=== PATIENT | female | born 1950 | race Caucasian/White ===

== ENCOUNTER 2020-09-11 14:36 | Outpatient (REF) | payer MEDICARE, BC, SELFPAY ==
[2020-09-11 21:47] LABS: ALT 23 U/L (14-59); AST 27 U/L (15-37); Albumin 4.2 g/dL (3.4-5.0); Alkaline Phosphatase 84 U/L (46-116); Anion Gap 9.8 mmol/L (3-11); BUN 18 mg/dL (7-18); Bilirubin, Total 0.5 mg/dL (0.2-1.0); CO2 26.2 mmol/L (21.0-32.0); CREATININE 0.7 mg/dL (0.55-1.02); Calcium 9.1 mg/dL (8.5-10.1); Calculated LDL 86 mg/dL (<100); Chloride 102 mmol/L (98-107); Cholesterol 182 mg/dL (<200); Glucose 106 mg/dL (74-106); HDL Cholesterol 83 mg/dL (40-60); Potassium 4.4 mmol/L (3.5-5.1); Sodium 138 mmol/L (136-145); Total Protein 7.1 g/dL (6.4-8.2); Triglyceride 67 mg/dL (<150)
[2020-09-13 09:31] LABS: Hepatitis C Ab w Rflx HCV PCR Negative (Negative)
[2020-09-13 09:39] LABS: HIV-1/2 Ag & Ab Screen Negative (Negative)
== END 2020-09-11 14:37 | disposition home or self-care (01) ==
LOC: NCHCN 14:36
PROVIDERS: PCP Nurse Practitioner Family; Visit Provider Nurse Practitioner Family
DX: Z00.00 Encounter for general adult medical examination without abnormal findings (principal); Z11.59 Encounter for screening for other viral diseases; Z11.4 Encounter for screening for human immunodeficiency virus [HIV]; Z13.6 Encounter for screening for cardiovascular disorders; Z11.3 Encounter for screening for infections with a predominantly sexual mode of transmission
CPT/HCPCS: 80053; 80061; 86803; 87389

== ENCOUNTER 2021-02-04 15:59 | Outpatient (REF) | payer MEDICARE, BC, SELFPAY ==
--- NOTE | 2021-02-04 11:25 | PAPFT_PTH ---
PATIENT: Netta Hernandez LOC: [facility] U#:[id number] AGE/SX: 70/F ROOM: RE02/04/[address]: Sulema Briceño : 1950 BED: DIS: 02/04/2021 SPEC #: [id number] RECD: 02/05/21 12:55 STATUS: HAIDER RENeda #: [id number] DARRELL: 02/04/21 11:[address]: Sulema Briceño DEPT: [facility] Cytology RECD BY: Catalina Dawson Tissues: 1 - CX/ENDOCX FOR PAP SMEARS Procedures: PAP THIN PREP/UVM Screening HPV DNA PROBE Comments: [id number]
== END 2021-02-04 16:00 | disposition home or self-care (01) ==
LOC: NCHCN 15:59
PROVIDERS: PCP Nurse Practitioner Family; Visit Provider Nurse Practitioner Family
DX: Z12.4 Encounter for screening for malignant neoplasm of cervix (principal); Z11.51 Encounter for screening for human papillomavirus (HPV)
CPT/HCPCS: 88142; 87624

== ENCOUNTER 2022-02-11 16:39 | Outpatient (REF) | payer MEDICARE, BC, SELFPAY ==
[2022-02-11 20:48] LABS: ALT 22 U/L (14-59); AST 27 U/L (15-37); Albumin 3.9 g/dL (3.4-5.0); Alkaline Phosphatase 86 U/L (46-116); Anion Gap 7.5 mmol/L (3-11); BUN 21 mg/dL (7-18); Bilirubin, Total 0.3 mg/dL (0.2-1.0); CO2 28.5 mmol/L (21.0-32.0); CREATININE 0.8 mg/dL (0.55-1.02); Calcium 9.1 mg/dL (8.5-10.1); Chloride 102 mmol/L (98-107); Estimated GFR 79.71 (mL/min/1.73m2); Glucose 99 mg/dL (74-106); Potassium 3.6 mmol/L (3.5-5.1); Sodium 138 mmol/L (136-145); Total Protein 7.1 g/dL (6.4-8.2)
[2022-02-13 05:54] LABS: Vitamin D 25 Total 59.3 ng/mL (30-100)
== END 2022-02-11 16:40 | disposition home or self-care (01) ==
LOC: NCHCN 16:39
PROVIDERS: PCP Nurse Practitioner Family; Visit Provider Nurse Practitioner Family
DX: M81.0 Age-related osteoporosis without current pathological fracture (principal); Z00.00 Encounter for general adult medical examination without abnormal findings
CPT/HCPCS: 80053; 82306

== ENCOUNTER 2024-02-18 16:08 | Outpatient (REF) | payer MEDICARE, BC, SELFPAY ==
--- OUTSIDE RECORDS SUMMARY | 2024-02-18 16:10 | XMS_ITS | Encounter Summary ---
Author Organization [facility] Address [address] [place] [address] Care Team Providers Care Data Management Consultant Name Role Phone KeyannaSulema ochoa Leelee DIANA Primary Care Provider [phone] Encounter Details Date Type Department Care Team (Late st Contact Info) Description 09/12/[address] [facility] Pathology & Laboratory Medicine - [address] [address] Outr Resulting Lab, Provider Social History Tobacco Use Types Packs/Day Years Used Date Smoking Tobacco: Never Assessed Interpersonal Safety Answer Date Record ed Physically Hurt Never 08/20/2020 Verbally Threaten Not on file 08/20/2020 Sex and Gender Information Value Date Recorded Sex Assigned at Not on file Gender Identity Not on file Sexual Orientation Not on file documented as of this encounter Plan of Treatment Not on file documented as of this encounter Procedures Procedure Name Priority Date/Time Associated Diagnosis Comments HEPATITIS C AB W REFLEX TO HCV RNA BY PCR Routine 09/11/2020 11:15 EDT documented in this encounter Results * HEPATITIS C AB W REFLEX TO HCV RNA BY PCR (09/11/2020 11:15 EDT) Hep C Antibody Negative Negative 09/13/2020 9:26 EDT [facility] Blood VENOUS BLOOD / Unknown 09/11/2020 11:15 EDT 09/12/2020 15:54 EDT Provider Outr Resulting Lab CHEMISTRY & BLOOD GAS ORDERABLES [facility] [address] [place] [address] documented in this encounter Visit Diagnoses Not on filedocumented in this encounter Care Teams Data Management Consultant Relationship Specialty Start Date End Date Sulema Briceño APRN 4 [facility] [place] [address] PCP - General 08/20/20 documented as of this encounter
--- OUTSIDE RECORDS SUMMARY | 2024-02-18 16:10 | XMS_ITS | Encounter Summary ---
Author Organization [facility] Address [address] [place] [address] Care Team Providers Care Hole Puncher Strap Name Role Phone KeyannaSulema ochoa Leelee DIANA Primary Care Provider [phone] Reason for Visit * Reason Comments Breast Problem Telemedicine Phone Call Encounter Details Date Type Department Care Team (Late st Contact Info) Description 08/30/2020 12:[address] [facility] OBGYN [address], [place] [id number] Thao Najera, VOLLEYBALL COMMENTATOR [address] [facility] [place] [address] Contusion of right breast, initial encounter (Primary Dx) Social History Tobacco Use Types Packs/Day Years Used Date Smoking Tobacco: Never Assessed Interpersonal Safety Answer Date Record ed Physically Hurt Never 08/20/2020 Verbally Threaten Not on file 08/20/2020 Sex and Gender Information Value Date Recorded Sex Assigned at Not on file Gender Identity Not on file Sexual Orientation Not on file documented as of this encounter Progress Notes * Thao Najera APRN - 08/30/2020 1240 EDT [facility] Telephone Visit Verbal consent: The concept of ???Telemedicine?? has been described to the patient.? Patient has been informed of the anticipated benefits and possible risks.? Patient understands the information provided regardingtelemedicine, has had the opportunity to ask questions about this information, and all questions have been answered to patient???s satisfaction. Patient consents for the use of telemedicine in his/her medical care and authorizes the transmission of any relevant medical information to providers and their staff involved in patient???s medical or mental health care. Subjective: Chief Complaint(s): Breast Problem and Telemedicine Phone Call HPI: Telemed phone call due to pandemic. A couple of weeks ago noticed a bruise on her right breast-was there for about a week. Turned yellow and went away. Thinks it happened from sleeping in a differentposition. No nipple discharge, no pain. Did not notice any other changes. Has not had a mammogram in a long time. I have reviewed current problem list and current medications. Taking B complex, D-Mannose, Adrenal support supplement, no other medications Scheduled for first Covid vaccine in 2 weeks ROS: Healthy diet-normal daily BMs Denies urinary symptoms-at some point had blood in her urine and started taking D-Mannose and cranberry juice and it resolved Denies vaginal bleeding Objective: Examination: Home Vitals: There were no vitals taken for this visit. Pertinent exam findings patient can observe: see HPI Data reviewed with patient: No data Assessment & Plan: Breast contusion that resolved spontaneously Overdue for AE/PAP/Mammogram-An plans to schedule a visit in 12/2020 Patient initiated phone contact with the office Yes, Is an established patient (parent, guardian) No, E/M provided within previous 7 days for same Assessment No, Anticipate E/M service within 24hrs or next available urgent appointment No, Time spent in medical discussion 11-20. 20 minutes includingchart review and charting Thao Najera APRN documented in this encounter Plan of Treatment Not on file documented as of this encounter Visit Diagnoses Diagnosis Contusion of right breast, initial encounter- Primary documented in this encounter Care Teams Hole Puncher Strap Relationship Specialty Start Date End Date Sulema Briceño APRN [address] [place] [address] PCP - General 08/20/20 documented as of this encounter
--- OUTSIDE RECORDS SUMMARY | 2024-02-18 16:10 | XMS_ITS | Clinical Summary ---
Author Organization [facility] Address [address] [place] [address] Care Team Providers Care Power Originator Name Role Phone Sulema Briceño APRN Primary Care Provider [phone] Allergies No known active allergies Medications Medication Sig Dispensed Refills Start Date End Date Status UNABLE TO FIND Med Name: CBD supplement Active Multivitamins with Minerals tablet tablet Take 1 Tab by mouth daily. Active Social History Tobacco Use Types Packs/Day Years Used Date Smoking Tobacco: Never Assessed Interpersonal Safety Answer Date Record ed Physically Hurt Never 08/20/2020 Verbally Threaten Not on file 08/20/2020 Sex and Gender Information Value Date Recorded Sex Assigned at Not on file Gender Identity Not on file Sexual Orientation Not on file Obstetrics History Para Term AB IAB SAB Ectopic Multiple Livin g Live Births 0 Last Filed Vital Signs Vital Sign Reading Time Taken Comments Blood Pressure 144/84 08/20/2020 1041 EDT Pulse 89 08/20/2020 1041 EDT Temperature 36.6 ??C (97.8 ??F) 08/20/2020 1041 EDT s canner Respiratory Rate 18 08/20/2020 1041 EDT Oxygen Saturation 100% 08/20/2020 1041 EDT Inhaled Oxygen Concentration - - Weight - - Height - - Body Mass Index - - Plan of Treatment Health Maintenance Due Date Last Done Comments RSV Immunization ( o r 60+ Years) (1 - 1-dose 60+ series) 2012 Fall Risk Screening 2017 COVID-19 Vaccine ( season) 2024 Hepatitis C Screen Completed 09/11/2020 Procedures Procedure Name Priority Date/Time Associated Diagnosis Comments HEPATITIS C AB W REFLEX TO HCV RNA BY PCR Routine 09/11/2020 11:15 EDT from Last 3 Months or Most Recently Relevant to Health Maintenance Results * HEPATITIS C AB W REFLEX TO HCV RNA BY PCR (09/11/2020 11:15 EDT) Hep C Antibody Negative Negative 09/13/2020 9:26 EDT [facility] Blood VENOUS BLOOD / Unknown 09/11/2020 11:15 EDT 09/12/2020 15:54 EDT Provider Outr Resulting Lab CHEMISTRY & BLOOD GAS ORDERABLES [facility] [address] [place] [address] from Last 3 Months or Most Recently Relevant to Health Maintenance Care Teams Power Originator Relationship Specialty Start Date End Date Sulema Briceño APRN 4 [facility] [place] [address] PCP - General 08/20/20
--- OUTSIDE RECORDS SUMMARY | 2024-02-18 16:10 | XMS_ITS | Referral Summary ---
Author Organization [facility] Address [address] [place] [address] Care Team Providers Care Graduate Teaching Assistant Name Role Phone Sulema Briceño APRN Primary Care Provider [phone] Allergies No known active allergies Medications Medication [...] on file Sexual Orientation Not on file Last Filed Vital Signs Vital Sign Reading Time Taken Comments Blood Pressure 144/84 08/20/2020 1041 EDT Pulse 89 08/20/2020 1041 EDT Temperature 36.6 ??C (97.8 ??F) 08/20/2020 1041 EDT s canner Respiratory Rate 18 08/20/2020 1041 EDT Oxygen Saturation 100% 08/20/2020 1041 EDT Inhaled Oxygen Concentration - - Weight - - Height - - Body Mass Index - - Plan of Treatment Not on file Procedures Procedure Name Priority Date/Time Associated Diagnosis Comments HEPATITIS C AB W REFLEX TO HCV RNA BY PCR Routine 09/11/2020 11:15 EDT from Last 3 Months or Most Recently Relevant to Health Maintenance Results * HEPATITIS C AB W REFLEX TO HCV RNA BY PCR (09/11/2020 11:15 EDT) Hep C Antibody Negative Negative 09/13/2020 9:26 EDT [facility] Blood VENOUS BLOOD / Unknown 09/11/2020 11:15 EDT 09/12/2020 15:54 EDT Provider Outr Resulting Lab CHEMISTRY & BLOOD GAS ORDERABLES [facility] [address] [place] [address] from Last 3 Months or Most Recently Relevant to Health Maintenance Care Teams Graduate Teaching Assistant Relationship Specialty Start Date End Date Sulema Briceño APRN 4 [facility] [place] [place] [address] PCP - General 08/20/20
--- OUTSIDE RECORDS SUMMARY | 2024-02-18 16:10 | XMS_ITS | Encounter Summary ---
Author Organization [facility] Address [address] [place] [address] Care Team Providers Care Sales Associate Fishing Name Role Phone Sulema Briceño APRN Primary Care Provider [phone] Reason for Referral * Radiology Services (Routine/Next Available) - Authorization Not Required Specialty Diagnoses / Procedures Referred By Owne yadav Referred To Contact Diagnoses Encounter for screening mammogram for malignant neoplasm of breast Procedures MA BREAST SCREENING FLO BILATERAL Sulema Briceño APRN [address] [place] [address] [facility] Referral ID Status Reason Start Date Expiration Date Visits Requested Visits Authorized [id number] Authorization Not Required 11/28/2021 1 1 Reason for Visit * Radiology Services (Routine/Next Available) - Authorization Not Required Specialty Diagnoses / Procedures Referred By Owen yadav Referred To Contact Diagnoses Encounter for screening mammogram for malignant neoplasm of breast Procedures MA BREAST SCREENING FLO BILATERAL Sulema Briceño APRN [address] [place] [address] [facility] Referral ID Status Reason Start Date Expiration Date Visits Requested Visits Authorized [id number] Authorization Not Required 11/28/2021 1 1 Encounter Details Date Type Department Care Team (Latest Contact Info) Description 01/08/2022 13:31 EDT - 01/08/2022 23:59 EDT Hospital Encounter [facility] [address] [place] [address] Encounter for screening mammogram for malignant neoplasm of breast Discharge Disposition: Home or Self Care Social History Tobacco Use Types Packs/Day Years Used Date Smoking Tobacco: Never Assessed Interpersonal Safety Answer Date Record ed Physically Hurt Never 08/20/2020 Verbally Threaten Not on file 08/20/2020 Sex and Gender Information Value Date Recorded Sex Assigned at Not on file Gender Identity Not on file Sexual Orientation Not on file documented as of this encounter Medications at Time of Discharge Medication Sig Dispensed Refills Start Date End Date Multivitamins with Minerals tablet tablet Take 1 Tab by mouth daily. UNABLE TO FIND Med Name: CBD supplement documented as of this encounter Discharge Disposition Disposition Code Departure Means Destination Home or Self Care documented in this encounter Plan of Treatment Not on file documented as of this encounter Procedures Procedure Name Priority Date/Time Associated Diagnosis Comments MA BREAST SCREENING FLO BILATERAL Routine 01/08/2022 14:05 EDT Encounter for screening mammogram for malignant neoplasm of breast documented in this encounter Results * MA BREAST SCREENING FLO BILATERAL (01/08/2022 14:05 EDT) Anatomical Region Laterality Modality Breast Bilateral Mammography 01/10/2022 14:5 9 EDT Impressions 01/10/2022 14:59 EDT Negative, no evidence of malignancy. RECOMMENDATION: Routine screening mammography is recommended. OVERALL ASSESSMENT: BI-RADS 1: Negative These results will be communicated to your patient via a lay letter from Radiology. If any additional imaging is needed we will contact your patient directly. Narrative 01/10/2022 14:59 EDT MA BREAST SCREENING FLO BILATERAL ??01/08/2022 1:50 PM History: SCREENING Comparison: ??Comparison has been made to previous images. Technique: Routine 3D tomosynthesis with synthesized 2D views with CAD Bilateral Breast Composition: The breast tissue is heterogenously dense, which may obscure small masses. Bilateral Breast Findings: ??No significant masses, calcifications or other abnormalities are seen. Procedure Note Mian Almendarez MD - 01/10/2022 MA BREAST SCREENING FLO BILATERAL 01/08/2022 1:50 PM History: SCREENING Comparison: Comparison has been made to previous images. Technique: Routine 3D tomosynthesis with synthesized 2D views with CAD Bilateral Breast Composition: The breast tissue is heterogenously dense,which may obscure small masses. Bilateral Breast Findings: No significant masses, calcifications or otherabnormalities are seen. IMPRESSION Negative, no evidence of malignancy. RECOMMENDATION: Routine screening mammography is recommended. OVERALL ASSESSMENT: BI-RADS 1: Negative These results will be communicated to your patient via a lay letter fromRadiology. If any additional imaging is needed we will contact yourpatient directly. Sulema Briceño APRN [facility]AP[facility] [place] documented in this encounter Visit Diagnoses Diagnosis Encounter for screening mammogram for malignant neoplasm of breast Other screening mammogram documented in this encounter Care Teams Sales Associate Fishing Relationship Specialty Start Date End Date Sulema Briceño APRN [address] [place] [address] PCP - General 08/20/20 documented as of this encounter
--- OUTSIDE RECORDS SUMMARY | 2024-02-18 16:10 | XMS_ITS | Encounter Summary ---
Author Organization [facility] Address [address] [place] [address] Care Team Providers Care Greenhouse Assistant Name Role Phone Sulema Briceño APRN Primary Care Provider [phone] Encounter Details Date Type Department Care Team (Late st Contact Info) Description 02/06/2021 Lab Requisition [facility] Pathology & Laboratory Medicine - [address] [address] Sulema Briceño APRN [address] [place] [address] Encounter for other general examination Social History Tobacco Use Types Packs/Day Years [...] Procedure Name Priority Date/Time Associated Diagnosis Comments PAP TEST Today 02/04/2021 11:25 EDT Encounter for other general examination HPV DNA DETECTION WITH GENOTYPING, PCR Today 02/04/2021 11:25 EDT Encounter for other general examination documented in this encounter Results * HUMAN PAPILLOMAVIRUS (HPV) DETECTION-HIGH RISK TYPES (02/04/2021 11:25 EDT) HPV other High Risk types, PCR Negative Negative 02/21/2021 7:35 [facility] Comment:No E6 or E7 mRNA is detected from HPV types 16,18,31,33,35,39,45,51,52,56,58,59,66, and 68 by certified substance abuse counselor mediated amplification. Papanicolaou smear specimen (specimen) CERVIX UTERI STRUCTURE / Unknown 02/04/2021 11:25 EDT 02/19/2021 13:39 EDT Sulema Mckoy Keyanna DIANA MICROBIOLOGY - GENER AL ORDERABLES [facility] [address] [place] [address] * PAP TEST (02/04/2021 11:25 EDT) Specimens A. Cervix and/or Endocervix , ThinPrep Imaging System with Manual Evaluation 02/21/2021 7:35 [facility] Specimen Adequacy Satisfactory for Evaluation - assessment of transformation zone component not applicable ( e.g. atrophy, vaginal sample, hysterectomy) Scant squamous epithelial component, contamination present, possibly lubricant 02/21/2021 7:35 [facility] General Categorization Negative for intraepithelial lesion or malignancy 02/21/2021 7:35 [facility] Attestation . 02/21/2021 7:35 [facility] at 0735 Clinical History See below 02/22/20 7:35 [facility] HPV The result for the Human Papillomavirus (HPV) Detection-High Risk Types is Negative. No E6 or E7 mRNA is detected from HPV types 16,18,31,33,35,39 ,45,51,52,56,58,5 9,66, and 68 by certified substance abuse counselor mediated amplification.Purnima ting was performed on specimen [id number] and was resulted on 02/21/2021 0734 EDT by [place], LAB INSTRUMENT RESULTS IN 02/21/2021 7:35 T [facility] Performing Lab [facility] 02/21/2021 7:35 EDT [facility] Scanned Images 02/21/2021 7:35 EDT [facility] Papanicolaou smear specimen (specimen) CERVIX UTERI STRUCTURE / Unknown 02/04/2021 11:25 EDT 02/06/2021 14:44 EDT Sulema Briceño APRN PATHOLOGY ORDERABLES [facility] [address] [place] [address] documented in this encounter Visit Diagnoses Diagnosis Encounter for other general examination documented in this encounter Care Teams Greenhouse Assistant Relationship Specialty Start Date End Date Sulema Briceño APRN [address] [place] [address] PCP - General 08/20/20 documented as of this encounter
--- OUTSIDE RECORDS SUMMARY | 2024-02-18 16:10 | XMS_ITS | Encounter Summary ---
Author Organization [facility] Address [address] [place] [address] Care Team Providers Care Meteorological Observer Name Role Phone KeyannaSulema ochoa Leelee DIANA Primary Care Provider [phone] Encounter Details Date Type Department Care Team (Late st Contact Info) Description 09/12/2020 Lab Requisition [facility] Pathology & Laboratory Medicine - [address] [address] Outr Resulting Lab, Provider Social History Tobacco [...] Procedure Name Priority Date/Time Associated Diagnosis Comments HIV 1/2 ANTIGEN AND ANTIBODY, 4TH GENERATION Routine 09/11/2020 11:15 EDT documented in this encounter Results * HIV 1/2 ANTIGEN AND ANTIBODY, 4TH GENERATION (09/11/2020 11:15 EDT) HIV 1 and 2 Antibody/p24 Antigen, 4th Generation Negative Negative 09/13/2020 9:35 EDT [facility] Comment: If acute HIV-1 infection is suspected in a high risk ??patient, submit plasma specimen for HIV-1 RNA quantitation test. Fourth Generation assay performed on the Siemens [employer]. Blood VENOUS BLOOD / Unknown 09/11/2020 11:15 EDT 09/12/2020 15:54 EDT Provider Outr Resulting Lab IMMUNOLOGY A ND SEROLOGY ORDERABLES [facility] [address] [place] [address] documented in this encounter Visit Diagnoses Not on filedocumented in this encounter Care Teams Meteorological Observer Relationship Specialty Start Date End Date Sulema Briceño APRN [address] [place] [address] PCP - General 08/20/20 documented as of this encounter
--- OUTSIDE RECORDS SUMMARY | 2024-02-18 16:10 | XMS_ITS | Encounter Summary ---
Author Organization [facility] Address [address] [place] [address] Care Team Providers Care Meat Carrier Name Role Phone Sulema Briceño APRN Primary Care Provider [phone] Reason for Referral * Radiology Services (Routine/Next Available) - New Request Specialty Diagnoses / Procedures Referred By Contac t Referred To Contact Diagnoses Asymptomatic menopausal state Encounter for screening for osteoporosis Procedures XR DEXA BONE DENSITY Sulema Briceño APRN [address] [place] [address] [facility] Referral ID Status Reason Start Date Expiration Date V isits Requested Visits Authorized [id number] New Request 11/26/2021 1 1 Reason for Visit * Radiology Services (Routine/Next Available) - New Request Specialty Diagnoses / Procedures Referred By Contac t Referred To Contact Diagnoses Asymptomatic menopausal state Encounter for screening for osteoporosis Procedures XR DEXA BONE DENSITY Sulema Briceño APRN [address] [place] [address] [facility] Referral ID Status Reason Start Date Expiration Date V isits Requested Visits Authorized [id number] New Request 11/26/2021 1 1 Encounter Details Date Type Department Care Team (Latest Contact Info) Description 12/14/2021 10:15 EDT - 12/14/2021 23:59 EDT Hospital Encounter [facility] Xray [address] [place] [address] Asymptomatic menopausal state; Encounter for screening for osteoporosis Discharge Disposition: Home or Self Care Social [...] Procedure Name Priority Date/Time Associated Diagnosis Comments DXA BONE DENSITY Routine 12/14/2021 10:3 9 EDT Asymptomatic menopausal state Encounter for screening for osteoporosis documented in this encounter Results * XR DEXA BONE DENSITY (12/14/2021 10:39 EDT) Anatomical Region Laterality Modality DEXA Narrative 12/16/2021 16:12 EDT Indication: postmenopausal; screening for osteoporosis; parental hip fracture; Accession number: [id number] Clinical Information Provided by Patient: Parent has had a hip fracture ?? Has used the following medications: Vitamin D, Calcium Patient maximum height was 66 Menopause Age 49 Drinks caffeinated beverages ?? Onset of menses at age 16 Number of children 0 Bone Density: Exam date 12/14/2021 Region BMD (g/cm2) T-score Z-score Classification AP Spine(L1-L4) 0.656 -3.6 -1.5 Osteoporosis Femoral Neck(Left) 0.558 -2.6 -0.9 Osteoporosis Total Hip(Left) 0.699 -2.0 -0.5 Osteopenia World Health Organization criteria for BMD impression classify patients as Normal (T-score at or above ? 1.0), Osteopenia (T-score between ? 1.0 and ? 2.5), or Osteoporosis (T-score at or below ? 2.5). ?? 10-year Fracture Risk: FRAX not reported because: ??Some T-score for Spine Total or Hip Total or Femoral Neck at or below -2.5 Impression: The patient has osteoporosis, based on the Total Spine T-score. The patient has risk factors, including: parental hip fracture. Discussion: INCREASED RISK OF FRACTURE. BONE DENSITY IS UNDESIRABLY LOW AT ONE OR MORE SKELETAL SITES, CONSISTENT WITH POSTMENOPAUSAL OSTEOPOROSIS. This patient's lowest T-score meets the World Health Organization's (WHO) criteria for osteoporosis at one or more sites (T-score -2.5 or below). ?? In untreated patients, the risk of osteoporotic fracture increases approximately two-fold for each 1.0 SD decrease in T-score. ??Low bone density is not the only risk factor for fracture; also consider factors such as patient's age, frailty or poor health, risk of falling, risk of injury, previous osteoporotic fracture, family history of osteoporosis, cigarette smoking, low body weight, etc. ?? Not everyone with low bone mineral density has osteoporosis; osteomalacia and other metabolic bone disorders should also be considered. Patients who have osteoporosis should be evaluated for specific diseases and conditions (secondary causes) that may cause or contribute to bone loss. ?? The [place] Association of Clinical Endocrinologists (AACE) and National Osteoporosis Foundation (NOF) recommend pharmacologic intervention for all postmenopausal women whose T-score is in this range. The patient should follow a healthful lifestyle (good nutrition with adequate calcium and vitamin D, and appropriate weight-bearing exercise). Follow-Up: Consider a repeat BMD and Vertebral Fracture Assessment (VFA) exam in 2 years or sooner if medically necessary, to reassess this patient's status. Reported by: Solis Pérez MD, on 12/14/2021 10:38:00 AM. Sulema Briceño APRN IMG DEXA ORDERABLES documented in this encounter Visit Diagnoses Diagnosis Asymptomatic menopausal state Asymptomatic postmenopausal status (age-related) (natural) Encounter for screening for osteoporosis Special screening for osteoporosis documented in this encounter Care Teams Meat Carrier Relationship Specialty Start Date End Date Sulema Briceño APRN [address] [facility] [place] [phone] PCP - General 08/20/20 documented as of this encounter
--- OUTSIDE RECORDS SUMMARY | 2024-02-18 16:10 | XMS_ITS | Encounter Summary ---
Author Organization [facility] Address [address] [place] [address] Care Team Providers Care Banjo Repairer Name Role Phone Sulema Briceño APRN Primary Care Provider Encounter Details Date Type Department Care Team (Late st Contact Info) Description 12/19/2020 Results Only Imaging [facility] Radiology Results [address] [place], [place] [address] Sulema Briceño APRN [address] [place] [address] Social History Tobacco Use Types Packs/Day Years [...] Diagnosis Comments MA BREAST SCREENING FLO BILATERAL 12/19/2020 14:55 EDT documented in this encounter Results * MA BREAST SCREENING FLO BILATERAL (12/19/2020 14:55 EDT) Anatomical Region Laterality Modality Breast Bilateral Mammography 12/19/2020 14:5 5 EDT Narrative 12/19/2020 14:55 EDT ? EXAM: MAMMOGRAM/MAMMO BILATERAL SCREEN W ??EX. D/ (0947) ? CLINICAL INFORMATION: ? Z12.31 SCREENING ? INDICATION: Z12.31 SCREENING SCREENING, 2007 - NEW BASELINE ? TECHNIQUE: ??Full field digital whole breast 2D (C-view) and 3D CC and ? MLO views of both breasts were obtained. CAD technology was utilized. ? FINDINGS: ??The fibroglandular patterns of the breasts are normal. ? There is no mammographic evidence of cancer. As there are no previous ? studies for comparison it would be advisable for the patient to have ? another mammogram in one year to be certain the breasts are stable. ? The breast tissue is extremely dense, which lowers the sensitivity of ? mammography. ? FINAL ASSESSMENT: ??BILATERAL BREAST: ??Category 1 - Negative. Routine ? mammographic follow-up is recommended. ? These results will be communicated to your patient via a lay letter ? from Radiology. ??If any additional imaging is needed we will contact ? your patient directly. ? REPORT SIGNED IN OTHER VENDOR SYSTEM 12/19/2020 ?Reported By: Solis Pérez MD ? CC: ? Transcribed Date/Time: 12/19/2020 (9187) ? Hospitality Aide: ? Printed Date/Time: 12/19/2020 (4748) ? PAGE 1 ? Signed Report ? Procedure Note Solis Pérez MD - 12/19/2020 EXAM: MAMMOGRAM/MAMMO BILATERAL SCREEN W EX. D/ (0947) CLINICAL INFORMATION: Z12.31 SCREENING INDICATION: Z12.31 SCREENING SCREENING, 2007 - NEW BASELINE TECHNIQUE: Full field digital whole breast 2D (C-view) and 3D CCand MLO views of both breasts were obtained. CAD technology wasutilized. FINDINGS: The fibroglandular patterns of the breasts are normal. There is no mammographic evidence of cancer. As there are noprevious studies for comparison it would be advisable for the patient tohave another mammogram in one year to be certain the breasts are stable. The breast tissue is extremely dense, which lowers the sensitivityof mammography. FINAL ASSESSMENT: BILATERAL BREAST: Category 1 - Negative.Routine mammographic follow-up is recommended. These results will be communicated to your patient via a lay letter from Radiology. If any additional imaging is needed we willcontact your patient directly. REPORT SIGNED IN OTHER VENDOR SYSTEM 12/19/2020 Reported By: Solis Pérez MD CC: Transcribed Date/Time: 12/19/2020 (4915) Hospitality Aide: Printed Date/Time: 12/19/2020 (8887) PAGE 1 Signed Report Sulema Briceño APRN IM MAMMOGRAPHY [facility] documented in this encounter Visit Diagnoses Not on filedocumented in this encounter Care Teams Banjo Repairer Relationship Specialty Start Date End Date Sulema Briceño APRN [address] [place] [phone] PCP - General 08/20/20 documented as of this encounter
--- OUTSIDE RECORDS SUMMARY | 2024-02-18 16:10 | XMS_ITS | Encounter Summary ---
Author Organization [facility] Address [address] [place] [address] Care Team Providers Care Consumer Science Teacher Name Role Phone Sulema Bricñeo Leelee DIANA Primary Care Provider [phone] Reason for Visit * Reason Comments Fatigue Encounter Details Date Type Department Care Team (Late st Contact Info) Description 08/20/2020 10:00 EDT Office Visit [facility] [address] [place] [id number] Suyapa Shaffer PA-C [address] [facility] [address] [place], [place] [id number] Disturbance of sleep (Primary Dx) Social History Tobacco Use Types Packs/Day Years Used Date Smoking Tobacco: Never Assessed Interpersonal Safety Answer Date Record ed Physically Hurt Never 08/20/2020 Verbally Threaten Not on file 08/20/2020 Sex and Gender Information Value Date Recorded Sex Assigned at Not on file Gender Identity Not on file Sexual Orientation Not on file documented as of this encounter Last Filed Vital Signs Vital Sign Reading Time Taken Comments Blood Pressure 144/84 08/20/2020 1041 EDT Pulse 89 08/20/2020 1041 EDT Temperature 36.6 ??C (97.8 ??F) 08/20/2020 1041 EDT s canner Respiratory Rate 18 08/20/2020 1041 EDT Oxygen Saturation 100% 08/20/2020 1041 EDT Inhaled Oxygen Concentration - - Weight - - Height - - Body Mass Index - - documented in this encounter Progress Notes * Amira Collier RN - 08/20/2020 1000 EDT CC: feeling emotional, weight loss, headaches... vague symptoms bothering her on/of for several weeks HPI: Has a PCP in [place] that she is scheduled to see in one month. She was hoping for a general evaluation sooner. Denies all covid symptoms. Has not been vaccinated. Recent covid test was negative after returning from travel on 08/03/20. CC: see above Covid Screening: In the last 72 hours, has the patient had: Shortness of breath, cough, sore throat, nasal congestion, runny nose, fever/chills/body aches, headache, or loss of taste or smell without a reasonable alternative diagnosis*? (If yes, assign patient to [facility] schedule)- NO If no, have they been advised to quarantine due to COVID exposure (<6ft for > 15 mins in 24hrperiod) or due to travel? (If no, see in [facility])- NO *may be determined by RN/FLATWORK WASHER or in discussion with available provider (CCA's can defer to Charge Nurse or Nurse they are working with to complete triage when appropriate) This excludes people that have traveled for essential reasons, or fully covid-vaccinated individuals > 14 days out from date of immunization. * Suyapa Shaffer PA-C - 08/20/2020 1000 EDT [facility] Chief Complaint(s): Chief Complaint Patient presents with ??? Fatigue Assessment & Plan: 1. Disturbance of sleep THYROID CASCADE COMPLETE BLOOD COUNT AND DIFFERENTIAL This patient presents with difficulty staying asleep since May. She admits she is quite anxiouswith covid and the way everything is right now. She has also been researching her symptoms and admits this could be exacerbating her poor sleep. She felt reassured after education about hydroxyzine and will give it a try. We also discussed ways to cope with stressors. We will check thyroid today and CBC given her concern for enlarged lymph nodes although I did not appreciate any on exam. She has close follow up with PCP in 3 weeks. If blood work is abnormal I will forward to PCP and she may need to get in sooner. New Prescriptions No medications on file HPI: This patient presents with concern for not sleeping well for months. She states she was in [place] in May when it started. She states she would be up at night and reading and head would be throbbing. Not pain, but annoying. In the middle of the night she starts to think about things, like covid and other stressors. It keeps her up. She did have a telehealth meeting with PCP, they prescribed her hydroxyzine, she has not tried it yet. Lots of stressors with covid. She has also been reading about what could be going on. She is wondering if this is related to her thyroid. She states she has also been feeling her neck. States she will feel enlargement of her 'glands' and then they just 'release' and drain. No report of abnormal bruising or bleeding with brushing teeth. Some nights are okay and she can sleep through, last night was up from 1-3am. This patient feels she has lost 10-12 lbs, not weighing herself, but feels clothes are looser sinceJanuary. No BM changes. No history of colonoscopy. She has had mammogram but is past due for one. She denies history of cancer. No history of excessive thirst or urination. The history is provided by the patient. ROS: Review of Systems Constitutional: Negative for fever. HENT: Negative for sore throat. Respiratory: Negative for cough and shortness of breath. Musculoskeletal: Negative for myalgias. Neurological: No change in taste or sense of smell Objective: Vitals and nursing notes reviewed Examination: BP (!) 144/84 (BP Cuff Location: Right arm, BP Patient Position: Sitting, BP Cuff Sizes: Adult, small) Pulse 89 Temp 36.6 ??C (97.8 ??F) Comment: scanner Resp 18 SpO2 100% Physical Exam Constitutional: General: She is not in acute distress. Appearance: Normal appearance. Neck: Musculoskeletal: Normal range of motion. Comments: Normal thyroid Cardiovascular: Rate and Rhythm: Normal rate and regular rhythm. Heart sounds: No murmur. Pulmonary: Effort: Pulmonary effort is normal. No respiratory distress. Lymphadenopathy: Cervical: No cervical adenopathy. Skin: General: Skin is warm and dry. Neurological: Mental Status: She is alert. Gait: Gait normal. * Amira Collier RN - 08/20/2020 1000 EDT Venipuncture done, patient tolerated well. documented in this encounter Plan of Treatment Scheduled Orders Name Type Priority Associated Diagnoses Orde r Schedule COMPLETE BLOOD COUNT AND DIFFERENTIAL Lab Routine Disturbance of sleep Ordered: 08/20/2020 documented as of this encounter Procedures Procedure Name Priority Date/Time Associated Diagnosis Comments COMPLETE BLOOD COUNT WITH DIFFERENTIAL (AUTO) Routine 08/20/2020 11:05 EDT Disturbance of sleep THYROID CASCADE Routine 08/20/2020 11:05 EDT Disturbance of sleep documented in this encounter Results * (ABNORMAL) COMPLETE BLOOD COUNT WITH DIFFERENTIAL (AUTO) (08/20/2020 11:05 EDT) ABSOLUTE NEUTROPHIL COUN - [facility] 5.1 2.2 - 8.85 10e3/uL 08/20/2020 13:38 [facility] BASO # - [facility] 0.06 0.01 - 0.11 10e/uL 08/20/2020 13:38 [facility] BASO % - [facility] 1 0 - 2 % 08/20/2020 13:38 [facility] EOS # - [facility] 0.01(L) 0.03 - 0.61 10e3/ul 08/20/2020 13:38 [facility] EOS % - [facility] 0 0 - 5 % 08/20/2020 13:38 [facility] GRAN % - [facility] 74.1 40 - 80 % 08/20/2020 13:38 [facility] HEMATOCRIT - [facility] 43.1 34.9 - 44.4 % 08/20/2020 13:38 [facility] HEMOGLOBIN - [facility] 13.8 11.6 - 15.2 g/dl 08/20/2020 13:38 [facility] IG# - [facility] 0.01 0 - 0.7 10e3/uL 08/20/2020 13:38 [facility] IG% - [facility] 0.1 0 - 0.9 % 08/20/2020 13:38 [facility] LYMPH # - [facility] 1.2 1.09 - 3.3 10e3/ul 08/20/2020 13:38 [facility] LYMPH% - [facility] 17.7(L) 20 - 40 % 08/20/2020 13:38 [facility] MEAN CORPUSCULAR HGB - [facility] 31.2 26.7 - 33.3 pg 08/20/2020 13:38 [facility] MEAN CORPUSCULAR HGB CONC - [facility] 32.0(L) 32.1 - 35.9 g/dL 08/20/2020 13:38 [facility] MEAN CELL VOLUME - [facility] 97.5 81 - 98 fl 08/20/2020 13:38 [facility] MONO # - [facility] 0.5 0.1 - 0.8 10e3/uL 08/20/2020 13:38 [facility] MONO% - [facility] 7.1 0 - 12 % 08/20/2020 13:38 [facility] PLATELET COUNT 333 141 - 377 10e3/ul 08/20/2020 13:38 [facility] RED BLOOD COUNT - [facility] 4.42 3.86 - 5.04 10e6/ul 08/20/2020 13:38 [facility] RED CELL DISTRI WIDTH - [facility] 13.2 <14.7 % 08/20/2020 13:38 [facility] WHITE BLOOD COUNT - [facility] 6.9 4.0 - 12.4 10e3/ul 08/20/2020 13:38 [facility] 08/20/2020 11:0 5 EDT 08/20/2020 13:06 EDT Suyapa Shaffer PA-C HEMATOLOGY & PF4 ORDERABLES [facility] [address] [place] [address] * THYROID CASCADE (08/20/2020 11:05 EDT) TSH 2.18 0.46 - 4.68 uIU/mL 08/20/2020 13:57 EDT [facility] Blood VENOUS BLOOD / Unknown 08/20/2020 11:05 EDT 08/20/2020 13:06 EDT Suyapa Shaffer PA-C CHEMISTRY & BLOOD GAS ORDERABLES Performing Organization Address [facility] Co de Phone Number [facility] [address] [place] [address] documented in this encounter Visit Diagnoses Diagnosis Disturbance of sleep- Primary Sleep disturbance, unspecified documented in this encounter Historical Medications * This list may reflect changes made after this encounter. Medication Sig Dispensed Refills Start Date End Date Multivitamins with Minerals tablet tablet Take 1 Tab by mouth daily. UNABLE TO FIND Med Name: CBD supplement added in this encounter Care Teams Consumer Science Teacher Relationship Specialty Start Date End Date Sulema Briceño APRN [address] [place] [address] PCP - General 08/20/20 documented as of this encounter
[2024-02-18 16:55] LABS: Anion Gap 11.3 mmol/L (3-11); BUN 15 mg/dL (7-18); CO2 26.7 mmol/L (21.0-32.0); CREATININE 0.8 mg/dL (0.55-1.02); Calcium 9.5 mg/dL (8.5-10.1); Calculated LDL 107 mg/dL (<100); Chloride 105 mmol/L (98-107); Cholesterol 204 mg/dL (<200); Estimated GFR 78.72 (mL/min/1.73m2); Glucose 98 mg/dL (74-106); HDL Cholesterol 89 mg/dL (40-60); Sodium 143 mmol/L (136-145); Triglyceride 44 mg/dL (<150)
== END 2024-02-18 16:09 | disposition home or self-care (01) ==
LOC: NCHCN 16:08
PROVIDERS: PCP Nurse Practitioner Family; Visit Provider Nurse Practitioner Family
DX: Z13.220 Encounter for screening for lipoid disorders; Z00.00 Encounter for general adult medical examination without abnormal findings
CPT/HCPCS: 80048; 80061